=== PATIENT | female | born 1955 | race Caucasian/White ===

== ENCOUNTER 2017-03-21 18:57 | Emergency (ER) | payer BC, OTHER ==
[~2017-03-21] VITALS: Ht 154.9 cm; Wt 68.0 kg
[~2017-03-21 18:57] MED LIST: /PROG10CA; ACET65TA; ANTI25TA; BABY81CH; CALC600T10; FISHCAP; PREM0.626; THERGRAN; VITAMIN D
[2017-03-21] MEDS ORDERED: ASPIRIN 81 MG CHEW TABLET PO ONE (19:30)
[2017-03-21] MEDS ORDERED: GI COCKTAIL 50ML BTL(HYOSCYAMINE/MAALOX/LIDOCAINE VISCOUS)(1:3:1) PO ONE (19:30)
[2017-03-21 19:56] LABS: BASO % 0.3 % (0.0-1.0); EOS # 0.2 K/mm3 (0.0-0.50); EOS % 2.4 % (0.0-3.0); LARGE UNSTAINED CELL # 0.1 K/mm3 (0.0-0.4); LARGE UNSTAINED CELL % 1.4 % (0.0-4.0); LYMPH # 1.8 K/mm3 (1.5-4.5); LYMPH % 25.3 % (24.0-44.0); MEAN CORPUSCULAR HEMOGLOBIN 32.6 pg (27.0-33.0); MEAN CORPUSCULAR HGB CONC 34.1 g/dl (32.0-36.5); MEAN CORPUSCULAR VOLUME 95.7 fl (80.0-96.0); MONO # 0.2 K/mm3 (0.0-0.8); MONO % 3.4 % (0.0-5.0); NEUTROPHILS # 4.5 K/mm3 (1.8-7.7); NEUTROPHILS % 67.2 % (36.0-66.0); PLATELET COUNT, AUTOMATED 238 k/mm3 (150-450); WHITE BLOOD COUNT 6.8 K/mm3 (4.0-10.0)
[2017-03-21 20:01] LABS: INR 0.97
[2017-03-21 20:23] LABS: ALBUMIN 3.9 GM/DL (3.2-5.2); ALBUMIN/GLOBULIN RATIO 1.08 (1.00-1.93); ALKALINE PHOSPHATASE 82 U/L (45-117); ALT/SGPT 42 U/L (12-78); ANION GAP 4 MEQ/L (8-16); AST/SGOT 26 U/L (15-37); BILIRUBIN,DIRECT 0.1 MG/DL (0.0-0.2); BILIRUBIN,TOTAL 0.6 MG/DL (0.2-1.0); BLOOD UREA NITROGEN 11 MG/DL (7-18); CALCIUM LEVEL 8.8 MG/DL (8.5-10.1); CARBON DIOXIDE LEVEL 30 MEQ/L (21-32); CHLORIDE LEVEL 104 MEQ/L (98-107); CREATININE FOR GFR 0.77 MG/DL (0.55-1.02); GLOMERULAR FILTRATION RATE > 60.0 (>51); GLUCOSE, FASTING 123 MG/DL (70-105); POTASSIUM SERUM 3.4 MEQ/L (3.5-5.1); SODIUM LEVEL 138 MEQ/L (136-145); TOTAL PROTEIN 7.5 GM/DL (6.4-8.2)
[2017-03-21 20:41] VITALS: BP 127/72
--- NOTE | 2017-03-22 08:05 | REP ---
PA and lateral chest: Comparison is 05/06/2010. The lung strange are clear. The cardiac size is normal The checo, mediastinum, and bony thorax are unremarkable. Impression: Negative PA and lateral chest. There is no interval change. Signed by Ruddy Castro MD 03/22/2017 07:56 A
--- NOTE | 2017-03-22 08:53 | ECGEPIP ---
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
== END 2017-03-21 21:05 | disposition home or self-care (01) ==
LOC: M ED 19:20
DX: R07.9 Chest pain, unspecified (principal); Z91.030 Bee allergy status; Z87.891 Personal history of nicotine dependence

== ENCOUNTER → 2017-05-24 | Outpatient (CLI) | payer BC ==
[2017-05-24 19:02] LABS: FREE T4 0.94 NG/DL (0.76-1.46)
== END ==
LOC: M WUC 11:03
PROVIDERS: ATTEND Family Medicine
DX: E03.8 Other specified hypothyroidism (principal)

== ENCOUNTER → 2017-10-30 | Outpatient (REF) | payer BC | LOC: M SFHCLERA 10:13 | PROVIDERS: ATTEND Dermatology | DX: L30.8 Other specified dermatitis (principal) ==

== ENCOUNTER → 2017-10-31 | Outpatient (CLI) | payer BC ==
--- NOTE | 2017-10-31 10:36 | REPMRS ---
Patient History The patient states she had a clinical breast exam in Patient is postmenopausal and is nulliparous. Family history of breast cancer in maternal aunt at age 50 or over. Took hormonal contraceptives for 10 years. Taking estrogen for 10 years. Took progesterone for 5 years. Digital Woman Screen Mammo: October 31, 2017 - Exam #: [id number] Bilateral CC and MLO view(s) were taken. Technologist: Sonja Arango, Technologist Prior study comparison: September 19, 2016, digital woman screen mammo performed at [facility]. July 05, 2015, digital woman screen mammo performed at [facility]. July 01, 2014, digital woman screen mammo performed at [facility]. FINDINGS: The breast tissue is heterogeneously dense. This may lower the sensitivity of mammography. There is a moderate amount of heterogeneously dense fibroglandular tissue which is fairly symmetric. There is no interval development of dominant mass, architectural distortion, or clustered microcalcification typical of malignancy. There has been no change in the appearance of the mammogram from the prior studies. ASSESSMENT: BI-RADS/ACR category 1 mammogram. Negative. Recommendation Routine screening mammogram of both breasts in 1 year (for women over age 40). This mammogram was interpreted with the aid of an FDA-approved computer-aided dectection system. Electronically Signed By: Gregg Gonzalez MD 10/31/17 1036
== END ==
LOC: M WHC 09:22
PROVIDERS: ATTEND Nurse Practitioner Women's Health
DX: Z12.31 Encounter for screening mammogram for malignant neoplasm of breast (principal)

== ENCOUNTER → 2017-10-31 | Outpatient (REF) | payer BC | LOC: M SFHCWAGY 09:58 | PROVIDERS: ATTEND Nurse Practitioner Women's Health | DX: Z12.4 Encounter for screening for malignant neoplasm of cervix (principal) ==

== ENCOUNTER 2018-02-23 06:45 | Day surgery (SDC) | payer BC ==
[2018-02-23] MEDS: NS 1,000 ML IV (07:00)
[2018-02-23] MEDS ORDERED: PROPOFOL 200 MG/20 ML VIAL As Ordered ×2 (07:45→07:47)
[2018-02-23] MEDS ORDERED: LIDOCAINE 2% INJ 100 MG/5 ML SDV (FOR ANES.) As Ordered (07:45)
== END 2018-02-23 08:30 | disposition home or self-care (01) ==
LOC: M OPP 06:45
DX: Z12.11 Encounter for screening for malignant neoplasm of colon (principal); K64.0 First degree hemorrhoids; K57.30 Diverticulosis of large intestine without perforation or abscess without bleeding; R07.89 Other chest pain; K21.9 Gastro-esophageal reflux disease without esophagitis; R12 Heartburn; M19.90 Unspecified osteoarthritis, unspecified site; Z85.828 Personal history of other malignant neoplasm of skin; Z78.0 Asymptomatic menopausal state; Z96.641 Presence of right artificial hip joint; Z91.030 Bee allergy status; Z91.048 Other nonmedicinal substance allergy status; Z79.899 Other long term (current) drug therapy; Z87.891 Personal history of nicotine dependence
CPT/HCPCS: G0121

== ENCOUNTER → 2018-06-02 | Outpatient (CLI) | payer BC ==
[2018-06-02 12:48] LABS: ALBUMIN 3.5 GM/DL (3.2-5.2); ALBUMIN/GLOBULIN RATIO 1.06 (1.00-1.93); ALKALINE PHOSPHATASE 82 U/L (45-117); ALT/SGPT 39 U/L (12-78); ANION GAP 8 MEQ/L (8-16); AST/SGOT 21 U/L (7-37); BILIRUBIN,TOTAL 0.6 MG/DL (0.2-1.0); BLOOD UREA NITROGEN 13 MG/DL (7-18); CALCIUM LEVEL 8.9 MG/DL (8.8-10.2); CARBON DIOXIDE LEVEL 27 MEQ/L (21-32); CHLORIDE LEVEL 108 MEQ/L (98-107); CHOLESTEROL LEVEL 189 MG/DL (<200); CREATININE FOR GFR 0.66 MG/DL (0.55-1.30); FREE T4 0.87 NG/DL (0.76-1.46); GLOMERULAR FILTRATION RATE > 60.0 (>45); GLUCOSE, FASTING 92 MG/DL (70-100); HDL CHOLESTEROL 70 MG/DL (>40); NON-HDL-C 119 MG/DL; POTASSIUM SERUM 4.2 MEQ/L (3.5-5.1); SODIUM LEVEL 143 MEQ/L (136-145); TOTAL PROTEIN 6.8 GM/DL (6.4-8.2); TRIGLYCERIDES LEVEL 90 MG/DL (<150)
== END ==
LOC: M WUC 08:36
DX: Z00.01 Encounter for general adult medical examination with abnormal findings (principal); E03.9 Hypothyroidism, unspecified
CPT/HCPCS: 84443

== ENCOUNTER → 2018-12-24 | Outpatient (CLI) | payer BC ==
[~2018-12-24] MED LIST changes: +ACYC400T PO; +ESTR1CRE VA; +METR0.7534 TOP; +TRET0.0540 EX; +VITA100067 PO
--- NOTE | 2018-12-24 15:26 | REPMRS ---
Patient History The patient states she had a clinical breast exam in 12/2018. Patient is postmenopausal, has history of other cancer at age 60, and is nulliparous. Family history of breast cancer at age 50 or over in maternal aunt. Took hormonal contraceptives for 10 years. Taking estrogen for 10 years. Took progesterone for 5 years. Digital Woman Screen Mammo: December 24, 2018 - Exam #: [id number] Bilateral CC and MLO view(s) were taken. Technologist: Susana Og Technologist Prior study comparison: October 31, 2017, digital woman screen mammo performed at [facility]. September 19, 2016, digital woman screen mammo performed at [facility]. July 05, 2015, digital woman screen mammo performed at [facility]. FINDINGS: The breast tissue is heterogeneously dense. This may lower the sensitivity of mammography. There is a moderate amount of heterogeneously dense fibroglandular tissue which is fairly symmetric. There is no interval development of dominant mass, architectural distortion, or clustered microcalcification typical of malignancy. There has been no change in the appearance of the mammogram from the prior studies. 3-D tomosynthesis shows no additional findings. Assessment: BI-RADS/ACR category 1 mammogram. Negative Mammogram. Recommendation Routine screening mammogram of both breasts in 1 year (for women over age 40). This patient's Lifetime Breast Cancer RIsk is estimated at 10.3 %. This mammogram was interpreted with the aid of an FDA-approved computer-aided dectection system. Electronically Signed By: Gregg Gonzalez MD 12/24/18 [id number]
== END ==
LOC: M WHC 13:37
PROVIDERS: ATTEND Nurse Practitioner Women's Health
DX: Z12.31 Encounter for screening mammogram for malignant neoplasm of breast (principal); Z78.0 Asymptomatic menopausal state; Z92.0 Personal history of contraception; Z92.23 Personal history of estrogen therapy; Z85.9 Personal history of malignant neoplasm, unspecified

== ENCOUNTER → 2018-12-24 | Outpatient (REF) | payer BC ==
[2018-12-26 15:32] LABS: HPV HYBRID CAPTURE II Negative (Negative)
== END ==
LOC: M SFHCWAGY 14:02
PROVIDERS: ATTEND Nurse Practitioner Women's Health
DX: Z12.4 Encounter for screening for malignant neoplasm of cervix (principal); R87.610 Atypical squamous cells of undetermined significance on cytologic smear of cervix (ASC-US); N95.2 Postmenopausal atrophic vaginitis
CPT/HCPCS: 87624; G0123

== ENCOUNTER → 2019-01-06 | Outpatient (REF) | payer BC | LOC: M SFHCPLAZ 17:19 | PROVIDERS: ATTEND Dermatology | DX: D23.21 Other benign neoplasm of skin of right ear and external auricular canal (principal) ==

== ENCOUNTER → 2019-01-14 | Outpatient (CLI) | payer BC ==
[~2019-01-14] MED LIST changes: +ISOVUE-370 76% 100ML VIAL (Q9967) As Ordered ONE
--- NOTE | 2019-01-19 16:08 | REP ---
CT CHEST WITHOUT IV CONTRAST: 01/14/2019. Comparison: CT without contrast 01/12/2018, outside exam. Clinical history: Follow-up lung nodule. Technique: Bolus of 75 ml Isovue 370 scanning through the chest with coronal and sagittal reconstructions provided. Findings: There is a 2 mm stable nodule lateral basal segment left lower lobe. There is also a stable 2 mm nodule in the inferior lingular segment along the major fissure on image 71. Some minor dependent atelectatic change posteriorly in the mid lung zone on the right. There are tree in bud nodular densities in the right upper lobe, which were not present on the previous study. The largest of these is 5 mm seen on image 36. Some minor apical pleural scarring noted bilaterally. There is no pleural based mass, pleural thickening, calcified pleural plaque thorax. Heart is not enlarged. There is a small hiatal hernia. Aorta is without aneurysm or dissection. The main, right and left pulmonary arteries are without focal filling defect. No pathologic sized mediastinal, hilar, axillary or supraclavicular mass. Bone windows show the sternum, manubrium, medial clavicles, scapulae and ribs intact. There are degenerative changes at the shoulders right greater than left. Spine shows no compression fracture or destructive lesion. Upper abdomen shows that portion of liver intact. The spleen is unremarkable. Only a portion of gallbladder and pancreas included but they were unremarkable. Adrenal glands normal. Impression: 1. Small left lung nodules on the previous study are stable. 2. There are new tree in bud nodular densities in the posterior segment right upper lobe. Although this usually represents bronchiectasis with endobronchial debris or infection, there are less common causes should be considered if the clinical setting warrants. Bronchiolitis such as obliterative bronchiolitis, mucus plugging and connective tissue disease along with other rare manifestations. Please correlate clinically. Electronically Signed by Eusebio Short MD 01/19/2019 06:01 P
== END ==
LOC: M RAD 10:32
PROVIDERS: ATTEND Family Medicine
DX: R91.8 Other nonspecific abnormal finding of lung field (principal)
CPT/HCPCS: 71260; Q9967

== ENCOUNTER → 2019-12-24 | Outpatient (CLI) | payer BC ==
[~2019-12-24] MED LIST changes: -/PROG10CA; -ISOVUE-370 76% 100ML VIAL (Q9967) As Ordered ONE; +PROM1CAP
--- NOTE | 2019-12-24 15:17 | REP ---
BILATERAL SCREENING DIGITAL MAMMOGRAM WITH 3D TOMOSYNTHESIS: There are no palpable abnormalities or other breast complaints. The the patient states she had a clinical breast examination December,. The Tyrer Cuzick Score is: 9.9% . Comparison is 10/31/2017 and 06/28/2013. The breasts are heterogeneously dense, which could obscure small masses. There is no dominant mass, micro calcific cluster or architectural distortion that would indicate malignancy. There are no additional findings on 3D tomosynthesiss. There is no change from the prior study. Impression: BIRADS/ACR category 1 mammogram. Negative. Recommendation: Routine annual screening mammography. Because of the increased breast density, annual adjunctive breast MRI in addition to screening mammography is recommended. These can be performed at alternating six month intervals. This mammogram was interpreted with the aid of a FDA approved computer-aided detection system. A. Negative mammogram reports should not delay biopsy if a dominant or clinically suspicious mass is present. B. Not all breast cancers are identified by mammography or tomosynthesis. C. Adenosis and dense breasts may obscure an underlying neoplasm. Patient letter M1 dense breasts. Electronically Signed by Ruddy Castro MD 12/24/2019 11:54 A
== END ==
LOC: M WHC 10:21
PROVIDERS: ATTEND Nurse Practitioner Women's Health
DX: Z12.31 Encounter for screening mammogram for malignant neoplasm of breast (principal)
CPT/HCPCS: 77063; 77067; G0123

== ENCOUNTER → 2019-12-24 | Outpatient (CLI) | payer BC ==
[2019-12-24 12:52] LABS: HEMATOCRIT 40.9 % (36.0-47.0); MEAN CORPUSCULAR HEMOGLOBIN 32.8 pg (27.0-33.0); MEAN CORPUSCULAR HGB CONC 34.2 g/dl (32.0-36.5); MEAN CORPUSCULAR VOLUME 95.8 fl (80.0-96.0); PLATELET COUNT, AUTOMATED 208 10^3/uL (150-450); RED BLOOD COUNT 4.27 10^6/uL (4.00-5.40)
[2019-12-24 13:03] LABS: ALBUMIN 3.9 GM/DL (3.2-5.2); ALT/SGPT 34 U/L (12-78); BILIRUBIN,TOTAL 0.6 MG/DL (0.2-1.0); BLOOD UREA NITROGEN 12 MG/DL (7-18); CALCIUM LEVEL 9.3 MG/DL (8.8-10.2); CARBON DIOXIDE LEVEL 30 MEQ/L (21-32); CHLORIDE LEVEL 107 MEQ/L (98-107); CHOLESTEROL LEVEL 183 MG/DL (<200); CHOLESTEROL RISK RATIO 2.127 (<5); CREATININE FOR GFR 0.69 MG/DL (0.55-1.30); FREE T4 1.06 NG/DL (0.76-1.46); GLOMERULAR FILTRATION RATE > 60.0 (>45); GLUCOSE, FASTING 89 MG/DL (70-100); HDL CHOLESTEROL 86 MG/DL (>40); LDL CHOLESTEROL 87 MG/DL (<100); NON-HDL-C 97 MG/DL; SODIUM LEVEL 140 MEQ/L (136-145); TOTAL PROTEIN 7.2 GM/DL (6.4-8.2); TRIGLYCERIDES LEVEL 48 MG/DL (<150)
== END ==
LOC: M WUC 08:54
PROVIDERS: ATTEND Family Medicine
DX: E03.9 Hypothyroidism, unspecified (principal); R91.1 Solitary pulmonary nodule

== ENCOUNTER → 2019-12-28 | Outpatient (CLI) | payer BC ==
[~2019-12-28] MED LIST changes: +ISOVUE-370 76% 100ML VIAL (Q9967) As Ordered ONE
--- NOTE | 2019-12-30 02:09 | REP ---
Clinical: Abnormal pulmonary findings. Technique: Axial contrast enhanced images from the thoracic inlet to the upper abdomen with coronal and sagittal re-formations using 75 ml Isovue 370 intravenous contrast material. Comparison: Findings: Previous focal area of tree in bud infiltrate in the right upper lobe has resolved. Previously identified small scattered nodules measuring 2-3 mm as identified on 01/12/2018 remains stable and consistent with small chronic granulomatous changes. No acute significant consolidation, pulmonary nodule or mass lesion. No pleural effusion. No pneumothorax. Tracheobronchial tree is patent. No adenopathy. The mediastinum demonstrates normal thoracic aorta and heart/pericardium. No aortic aneurysm or dissection. No cardiomegaly or pericardial effusion. Surrounding musculoskeletal structures are intact. Limited upper abdomen unremarkable. Impression: 1. Previously identified infiltrate in the right upper lobe has resolved. 2. Few scattered small nodules up to 3 mm remains stable through 01/12/2018 and likely represent benign chronic granulomatous changes. 3. No acute mediastinal or pleuroparenchymal process appreciated. Electronically Signed by Rudy Murdock MD 12/30/2019 02:01 A
== END ==
LOC: M RAD 17:25
PROVIDERS: ATTEND Family Medicine
DX: R91.8 Other nonspecific abnormal finding of lung field (principal)
CPT/HCPCS: 71260; Q9967

== ENCOUNTER → 2020-04-30 | Outpatient (CLI) | payer BC ==
[~2020-04-30] MED LIST changes: -ISOVUE-370 76% 100ML VIAL (Q9967) As Ordered ONE
--- NOTE | 2020-04-30 14:44 | REP ---
LEFT ANKLE, FOUR VIEWS: Four views of left ankle performed. Multiple calcific densities are seen adjacent to the medial malleolus. This could represent acute or chronic avulsion fractures, with possible ligamentous calcifications. There is no other evidence of fracture or dislocation. The ankle mortise is anatomic. There is lucency in the talar dome in a subcortical location. I cannot exclude an osteochondral lesion. There is mild inferior calcaneal spurring. Electronically Signed by Ruddy Dinero MD 04/30/2020 03:24 P
== END ==
LOC: M WUC 12:25
PROVIDERS: ATTEND Nurse Practitioner Family

== ENCOUNTER → 2020-06-08 | Outpatient (REF) | payer BC ==
[2020-06-08 13:02] LABS: HEMATOCRIT 41.7 % (36.0-47.0); HEMOGLOBIN 13.9 g/dl (12.0-15.5); MEAN CORPUSCULAR HEMOGLOBIN 32.3 pg (27.0-33.0); MEAN CORPUSCULAR HGB CONC 33.3 g/dl (32.0-36.5); MEAN CORPUSCULAR VOLUME 96.8 fl (80.0-96.0); PLATELET COUNT, AUTOMATED 218 10^3/uL (150-450); RED BLOOD COUNT 4.31 10^6/uL (4.00-5.40); WHITE BLOOD COUNT 5.7 10^3/uL (4.0-10.0)
[2020-06-08 13:57] LABS: ALBUMIN 3.8 GM/DL (3.2-5.2); ALT/SGPT 31 U/L (12-78); BILIRUBIN,TOTAL 0.7 MG/DL (0.2-1.0); BLOOD UREA NITROGEN 16 MG/DL (7-18); CALCIUM LEVEL 9.2 MG/DL (8.8-10.2); CARBON DIOXIDE LEVEL 27 MEQ/L (21-32); CHLORIDE LEVEL 106 MEQ/L (98-107); CHOLESTEROL LEVEL 212 MG/DL (<200); CHOLESTEROL RISK RATIO 2.494 (<5); CREATININE FOR GFR 0.73 MG/DL (0.55-1.30); FREE T4 0.92 NG/DL (0.76-1.46); GLOMERULAR FILTRATION RATE > 60.0 (>45); GLUCOSE, FASTING 88 MG/DL (70-100); HDL CHOLESTEROL 85 MG/DL (>40); LDL CHOLESTEROL 115 MG/DL (<100); NON-HDL-C 127 MG/DL; POTASSIUM SERUM 4.5 MEQ/L (3.5-5.1); SODIUM LEVEL 140 MEQ/L (136-145); TOTAL PROTEIN 7.5 GM/DL (6.4-8.2); TRIGLYCERIDES LEVEL 59 MG/DL (<150)
== END ==
LOC: M PLALAB 09:10
PROVIDERS: ATTEND Family Medicine
DX: R91.1 Solitary pulmonary nodule (principal); E03.9 Hypothyroidism, unspecified

== ENCOUNTER → 2020-10-24 | Outpatient (CLI) | payer BC | LOC: M LABSMTC 13:57 | PROVIDERS: ATTEND Family Medicine | DX: Z20.828 Contact with and (suspected) exposure to other viral communicable diseases (principal) ==

== ENCOUNTER → 2021-01-09 | Outpatient (REF) | payer BC | LOC: M SFHCWAGY 13:47 | PROVIDERS: ATTEND Nurse Practitioner Women's Health | DX: Z12.4 Encounter for screening for malignant neoplasm of cervix (principal) ==

== ENCOUNTER → 2021-01-09 | Outpatient (CLI) | payer BC ==
--- NOTE | 2021-01-09 12:53 | REPMRS ---
Patient History The patient states she had a clinical breast exam in January 2021. Patient is postmenopausal, has history of other cancer at age 60, and is nulliparous. Family history of breast cancer at age 50 or over in maternal aunt. Took hormonal contraceptives for 10 years. Took estrogen for 11 years 2 months. Took progesterone for 5 years. Digital Woman Screen Mammo: January 09, 2021 - Exam #: [id number] Bilateral CC and MLO view(s) were taken. Technologist: Nehal Lenz, Technologist Prior study comparison: December 24, 2019, bilateral digital woman screen mammo performed at [facility]. December 24, 2018, bilateral digital woman screen mammo performed at [facility]. October 31, 2017, digital woman screen mammo performed at [facility]. FINDINGS: The breast tissue is heterogeneously dense. This may lower the sensitivity of mammography. The Volpara volumetric breast density category is: C. There is a moderate amount of heterogeneously dense fibroglandular tissue which is fairly symmetric. There is no interval development of dominant mass, architectural distortion, or grouped microcalcification typical of malignancy. There has been no change in the appearance of the mammogram from the prior studies. 3-D tomosynthesis shows no additional findings. Assessment: BI-RADS/ACR category 1 mammogram. Negative Mammogram. Recommendation Routine screening mammogram of both breasts in 1 year (for women over age 40). This patient's [facility] Lifetime Breast Cancer RIsk is estimated at 9.6 %. This mammogram was interpreted with the aid of an FDA-approved computer-aided dectection system. Electronically Signed By: Gregg Gonzalez MD 01/09/21 [id number]
== END ==
LOC: M WHC 10:58
PROVIDERS: ATTEND Nurse Practitioner Women's Health
DX: Z12.31 Encounter for screening mammogram for malignant neoplasm of breast (principal); Z78.0 Asymptomatic menopausal state; Z80.3 Family history of malignant neoplasm of breast

== ENCOUNTER → 2021-06-06 | Outpatient (CLI) | payer BC ==
[~2021-06-06] MED LIST changes: +ACYC1TAB PO; -ACYC400T PO
[2021-06-06 10:45] LABS: ALBUMIN 3.9 GM/DL (3.2-5.2); ALT/SGPT 44 U/L (12-78); BLOOD UREA NITROGEN 15 MG/DL (7-18); CALCIUM LEVEL 9.1 MG/DL (8.8-10.2); CARBON DIOXIDE LEVEL 28 MEQ/L (21-32); CHLORIDE LEVEL 104 MEQ/L (98-107); CHOLESTEROL LEVEL 211 MG/DL (<200); CHOLESTEROL RISK RATIO 2.153 (<5); CREATININE FOR GFR 0.69 MG/DL (0.55-1.30); FREE T4 0.94 NG/DL (0.76-1.46); GLOMERULAR FILTRATION RATE > 60.0 (>45); GLUCOSE, FASTING 90 MG/DL (70-100); HDL CHOLESTEROL 98 MG/DL (>40); LDL CHOLESTEROL 100 MG/DL (<100); NON-HDL-C 113 MG/DL; SODIUM LEVEL 138 MEQ/L (136-145); TOTAL PROTEIN 7.3 GM/DL (6.4-8.2); TRIGLYCERIDES LEVEL 63 MG/DL (<150)
== END ==
LOC: M PLALAB 08:03
PROVIDERS: ATTEND Family Medicine
DX: E78.5 Hyperlipidemia, unspecified (principal); E03.9 Hypothyroidism, unspecified

== ENCOUNTER → 2021-09-20 | Outpatient (CLI) | payer BC ==
[2021-09-20 15:12] LABS: BASO # 0.1 10^3/uL (0.0-0.2); BASO % 0.6 % (0.0-1.0); EOS % 0.2 % (0.0-3.0); HEMOGLOBIN 13.7 g/dl (12.0-15.5); LYMPH # 2.4 10^3/uL (1.5-5.0); MEAN CORPUSCULAR HEMOGLOBIN 32.6 pg (27.0-33.0); MEAN CORPUSCULAR HGB CONC 34.3 g/dl (32.0-36.5); MEAN CORPUSCULAR VOLUME 95.2 fl (80.0-96.0); MONO # 0.5 10^3/uL (0.0-0.8); MONO % 5.8 % (2.0-8.0); NEUTROPHILS # 5.6 10^3/uL (1.5-8.5); NEUTROPHILS % 65.2 % (36.0-66.0); PLATELET COUNT, AUTOMATED 238 10^3/uL (150-450); WHITE BLOOD COUNT 8.6 10^3/uL (4.0-10.0)
[2021-09-20 15:40] LABS: C REACTIVE PROTEIN QUANTITATIV < 0.30 MG/DL (0.00-0.30); RHEUMATOID FACTOR QUANT < 10.0 IU/ML (<15.0); URIC ACID 4.5 MG/DL (2.6-6.0)
[2021-09-20 16:02] LABS: ERYTHROCYTE SEDIMENTATION RATE 8 mm/hr (0-30)
[2021-09-22 20:11] LABS: ANTI DOUBLE STRAND-DNA AB <1 IU/mL (0-9); ANTINUCLEAR ANTIBODIES DIRECT Positive (Negative); Lyme Disease IgG/IgM Antibodie <0.91 ISR (0.00-0.90); Lyme Disease IgM Ab Quantitati <0.80 index (0.00-0.79); SJOGREN'S ANTI SS-A <0.2 AI (0.0-0.9); SJOGREN'S ANTI SS-B <0.2 AI (0.0-0.9); SMITH ANTIBODIES <0.2 AI (0.0-0.9)
== END ==
LOC: M PLALAB 14:04
PROVIDERS: ATTEND Physician Assistant Surgical
DX: M16.12 Unilateral primary osteoarthritis, left hip (principal)

== ENCOUNTER → 2021-11-16 | Outpatient (CLI) | payer BC ==
[~2021-11-16] MED LIST changes: +ISOVUE-300 61% 50ML VIAL As Ordered ONE; +LIDOCAINE 1% MDV 20ML VIAL As Ordered ONE; +methylPREDNISolone SUSP 40MG/ML 1ML VIAL (DEPO MEDROL) As Ordered ONE
== END ==
LOC: M RADPRO 11:03
PROVIDERS: ATTEND Physician Assistant Surgical
DX: M16.12 Unilateral primary osteoarthritis, left hip (principal)
CPT/HCPCS: 20610; 77002; J1030; Q9967

== ENCOUNTER → 2022-01-14 | Outpatient (CLI) | payer BC ==
[~2022-01-14] MED LIST changes: -ISOVUE-300 61% 50ML VIAL As Ordered ONE; -LIDOCAINE 1% MDV 20ML VIAL As Ordered ONE; -methylPREDNISolone SUSP 40MG/ML 1ML VIAL (DEPO MEDROL) As Ordered ONE
[2022-01-14 18:08] LABS: BLOOD UREA NITROGEN 13 MG/DL (7-18); CALCIUM LEVEL 9.5 MG/DL (8.8-10.2); CARBON DIOXIDE LEVEL 28 MEQ/L (21-32); CHLORIDE LEVEL 106 MEQ/L (98-107); GLOMERULAR FILTRATION RATE > 60.0 (>45); GLUCOSE, FASTING 89 MG/DL (70-100); PHOSPHORUS LEVEL 3.7 MG/DL (2.5-4.9); POTASSIUM SERUM 4.4 MEQ/L (3.5-5.1); SODIUM LEVEL 141 MEQ/L (136-145)
[2022-01-14 18:09] LABS: ALBUMIN 3.9 GM/DL (3.2-5.2); ALT/SGPT 37 U/L (12-78); BILIRUBIN,TOTAL 0.4 MG/DL (0.2-1.0); CHOLESTEROL LEVEL 183 MG/DL (< 200); CPK CREATINE PHOSPHOKINASE 115 U/L (26-192); LDH LACTATE DEHYDROGENASE 177 U/L (84-246); TOTAL PROTEIN 7.3 GM/DL (6.4-8.2); TRIGLYCERIDES LEVEL 74 MG/DL (<150)
== END ==
LOC: M PLALAB 13:02
PROVIDERS: ATTEND Physician Assistant Surgical
DX: R76.8 Other specified abnormal immunological findings in serum (principal)

== ENCOUNTER → 2022-01-21 | Outpatient (REF) | payer BC | LOC: M SFHCDERM 14:18 | PROVIDERS: ATTEND Nurse Practitioner Family | DX: L82.0 Inflamed seborrheic keratosis (principal) ==

== ENCOUNTER → 2022-02-06 | Outpatient (CLI) | payer BC | LOC: M WHC 13:19 | PROVIDERS: ATTEND Advanced Practice Midwife | DX: Z12.31 Encounter for screening mammogram for malignant neoplasm of breast (principal) ==

== ENCOUNTER → 2022-02-06 | Outpatient (REF) | payer BC | LOC: M PLALAB 14:17 | PROVIDERS: ATTEND Advanced Practice Midwife | DX: Z12.4 Encounter for screening for malignant neoplasm of cervix (principal) | CPT/HCPCS: 87624; G0123 ==

== ENCOUNTER → 2022-03-28 | Outpatient (REF) | payer BC ==
[2022-03-28 13:10] LABS: HEMATOCRIT 40.1 % (36.0-47.0); HEMOGLOBIN 13.7 g/dl (12.0-15.5); MEAN CORPUSCULAR HEMOGLOBIN 32.9 pg (27.0-33.0); MEAN CORPUSCULAR HGB CONC 34.2 g/dl (32.0-36.5); MEAN CORPUSCULAR VOLUME 96.2 fl (80.0-96.0); PLATELET COUNT, AUTOMATED 266 10^3/uL (150-450); RED BLOOD COUNT 4.17 10^6/uL (4.00-5.40); WHITE BLOOD COUNT 7.5 10^3/uL (4.0-10.0)
[2022-03-28 13:18] LABS: APPEARANCE, URINE CLOUDY (CLEAR); BACTERIA, URINE AUTO 2+ (NEGATIVE); BILIRUBIN, URINE AUTO NEGATIVE (NEGATIVE); BLOOD, URINE BLOOD 1+ (NEGATIVE); COLOR, URINE YELLOW (YELLOW); GLUCOSE, URINE (UA) AUTO NEGATIVE (NEGATIVE); KETONE, URINE AUTO NEGATIVE (NEGATIVE); LEUKOCYTE ESTERASE, URINE AUTO 3+ (NEGATIVE); MUCUS, URINE SMALL (NEGATIVE); NITRITE, URINE AUTO NEGATIVE (NEGATIVE); PROTEIN, URINE AUTO NEGATIVE (NEGATIVE); RBC, URINE AUTO 13 /HPF (0-3); RENAL EPITHELIAL CELLS 2 /HPF; SPECIFIC GRAVITY URINE AUTO 1.013 (1.002-1.035); SQUAMOUS EPITHELIAL CELL UR AU 73 /HPF (0-6); TRANSITIONAL EPITHELIAL AUTO 1 /HPF; UROBILINOGEN, URINE AUTO 0.2 mg/dL (0.0-2.0); WBC, URINE AUTO 91 /HPF (0-3)
[2022-03-28 13:21] LABS: INR 0.96; PARTIAL THROMBOPLASTIN TIME 28.7 SECONDS (25.9-37.0); PROTHROMBIN TIME 13.2 SECONDS (12.7-14.5)
[2022-03-28 13:38] LABS: ALBUMIN 3.9 GM/DL (3.2-5.2); ALT/SGPT 42 U/L (12-78); BILIRUBIN,TOTAL 0.5 MG/DL (0.2-1.0); BLOOD UREA NITROGEN 17 MG/DL (7-18); CALCIUM LEVEL 9.9 MG/DL (8.8-10.2); CARBON DIOXIDE LEVEL 26 MEQ/L (21-32); CHLORIDE LEVEL 105 MEQ/L (98-107); CREATININE FOR GFR 0.58 MG/DL (0.55-1.30); GLOMERULAR FILTRATION RATE > 60.0 (>45); GLUCOSE, FASTING 105 MG/DL (70-100); POTASSIUM SERUM 4.2 MEQ/L (3.5-5.1); SODIUM LEVEL 137 MEQ/L (136-145); TOTAL PROTEIN 7.1 GM/DL (6.4-8.2)
== END ==
LOC: M SFHCADAM 10:30
PROVIDERS: ATTEND Family Medicine
DX: Z01.818 Encounter for other preprocedural examination (principal); M16.12 Unilateral primary osteoarthritis, left hip; E78.5 Hyperlipidemia, unspecified

== ENCOUNTER → 2022-08-26 | Outpatient (CLI) | payer MEDICARE, BC ==
[2022-08-26 10:46] LABS: HEMATOCRIT 42.6 % (36.0-47.0); HEMOGLOBIN 14.4 g/dl (12.0-15.5); MEAN CORPUSCULAR HEMOGLOBIN 32.6 pg (27.0-33.0); MEAN CORPUSCULAR HGB CONC 33.8 g/dl (32.0-36.5); MEAN CORPUSCULAR VOLUME 96.4 fl (80.0-96.0); PLATELET COUNT, AUTOMATED 238 10^3/uL (150-450); RED BLOOD COUNT 4.42 10^6/uL (4.00-5.40)
[2022-08-26 11:36] LABS: BLOOD UREA NITROGEN 17 MG/DL (7-18); CREATININE FOR GFR 0.68 MG/DL (0.55-1.30); GLUCOSE, FASTING 93 MG/DL (70-100)
[2022-08-26 11:37] LABS: ALBUMIN 3.6 GM/DL (3.2-5.2); ALT/SGPT 91 U/L (12-78); BILIRUBIN,TOTAL 0.5 MG/DL (0.2-1.0); CALCIUM LEVEL 9.2 MG/DL (8.8-10.2); CARBON DIOXIDE LEVEL 29 MEQ/L (21-32); CHLORIDE LEVEL 102 MEQ/L (98-107); CHOLESTEROL LEVEL 180 MG/DL (<200); CHOLESTEROL RISK RATIO 2.337 (<5); FREE T4 0.98 NG/DL (0.76-1.46); GLOMERULAR FILTRATION RATE > 60.0 (>45); HDL CHOLESTEROL 77 MG/DL (>40); LDL CHOLESTEROL 87 MG/DL (<100); NON-HDL-C 103 MG/DL; SODIUM LEVEL 136 MEQ/L (136-145); TOTAL PROTEIN 7.6 GM/DL (6.4-8.2); TRIGLYCERIDES LEVEL 81 MG/DL (<150)
== END ==
LOC: M PLALAB 08:07
PROVIDERS: ATTEND Family Medicine
DX: M75.01 Adhesive capsulitis of right shoulder (principal); E03.9 Hypothyroidism, unspecified; E78.5 Hyperlipidemia, unspecified

== ENCOUNTER → 2023-01-23 | Outpatient (REF) | payer MEDICARE, BC | LOC: M SFHCDERM 16:58 | PROVIDERS: ATTEND Nurse Practitioner Family | DX: D23.5 Other benign neoplasm of skin of trunk (principal) ==

== ENCOUNTER → 2023-02-17 | Outpatient (CLI) | payer MEDICARE, BC ==
[2023-02-17 15:41] LABS: ALBUMIN 3.8 G/DL (3.2-5.2); BILIRUBIN,DIRECT 0.2 MG/DL (<0.4); BILIRUBIN,TOTAL 0.6 MG/DL (0.3-1.2); TOTAL PROTEIN 6.8 G/DL (5.7-8.2)
== END ==
LOC: M PLALAB 13:21
PROVIDERS: ATTEND Family Medicine
DX: R74.8 Abnormal levels of other serum enzymes (principal)

== ENCOUNTER → 2023-02-27 | Outpatient (REF) | payer MEDICARE, BC | LOC: M SFHCADAM 16:39 | PROVIDERS: ATTEND Family Medicine | DX: E03.9 Hypothyroidism, unspecified (principal); E78.5 Hyperlipidemia, unspecified; M75.01 Adhesive capsulitis of right shoulder; M75.02 Adhesive capsulitis of left shoulder; Z13.1 Encounter for screening for diabetes mellitus ==

== ENCOUNTER → 2023-04-08 | Outpatient (CLI) | payer MEDICARE, BC | LOC: M SOG 07:57 | PROVIDERS: ATTEND Orthopaedic Surgery Hand Surgery | DX: M25.511 Pain in right shoulder (principal) ==

== ENCOUNTER → 2023-04-25 | Outpatient (CLI) | payer MEDICARE, BC | LOC: M WHC 13:19 | PROVIDERS: ATTEND Advanced Practice Midwife | DX: Z12.31 Encounter for screening mammogram for malignant neoplasm of breast (principal); Z78.0 Asymptomatic menopausal state; Z80.3 Family history of malignant neoplasm of breast; Z92.0 Personal history of contraception; Z85.89 Personal history of malignant neoplasm of other organs and systems ==

== ENCOUNTER → 2023-04-25 | Outpatient (CLI) | payer MEDICARE, BC | LOC: M WHC 14:30 | PROVIDERS: ATTEND Advanced Practice Midwife | DX: M85.88 Other specified disorders of bone density and structure, other site (principal); M85.832 Other specified disorders of bone density and structure, left forearm; Z13.820 Encounter for screening for osteoporosis ==

== ENCOUNTER → 2023-08-21 | Outpatient (CLI) | payer MEDICARE, BC ==
[2023-08-21 14:31] LABS: HEMATOCRIT 43.9 % (36.0-47.0); HEMOGLOBIN 14.6 g/dl (12.0-15.5); MEAN CORPUSCULAR HEMOGLOBIN 32.7 pg (27.0-33.0); MEAN CORPUSCULAR HGB CONC 33.3 g/dl (32.0-36.5); MEAN CORPUSCULAR VOLUME 98.4 fl (80.0-96.0); PLATELET COUNT, AUTOMATED 249 10^3/uL (150-450); RED BLOOD COUNT 4.46 10^6/uL (4.00-5.40); WHITE BLOOD COUNT 5.5 10^3/uL (4.0-10.0)
[2023-08-21 15:04] LABS: ALKALINE PHOSPHATASE 90 U/L (46-116); ALT/SGPT 28 U/L (7.0-40); AST/SGOT 29 U/L (<34); BILIRUBIN,TOTAL 0.9 MG/DL (0.3-1.2); BLOOD UREA NITROGEN 11 MG/DL (9-23); CALCIUM LEVEL 9.5 MG/DL (8.3-10.6); CARBON DIOXIDE LEVEL 31 MMOL/L (20-31); CHLORIDE LEVEL 104 MMOL/L (98-107); CHOLESTEROL LEVEL 192 MG/DL (<200); CHOLESTEROL RISK RATIO 2.29 (<5); CREATININE FOR GFR 0.64 MG/DL (0.55-1.30); GLOMERULAR FILTRATION RATE > 60.0 (>45); GLUCOSE, FASTING 92 MG/DL (74-106); HDL CHOLESTEROL 83.7 MG/DL (>40); LDL CHOLESTEROL 98.9 MG/DL (<100); NON-HDL-C 108.3 MG/DL; POTASSIUM SERUM 4.8 MMOL/L (3.5-5.1); SODIUM LEVEL 138 MMOL/L (136-145); TOTAL PROTEIN 7.2 G/DL (5.7-8.2); TRIGLYCERIDES LEVEL 47 MG/DL (<150)
[2023-08-21 15:05] LABS: THYROID STIMULATING HORMONE 3.076 uIU/ML (0.55-4.78)
[2023-08-21 15:44] LABS: HEMOGLOBIN A1c 4.6 % (4.0-6.0)
== END ==
LOC: M PLALAB 09:01
PROVIDERS: ATTEND Family Medicine
DX: E03.9 Hypothyroidism, unspecified (principal); E78.5 Hyperlipidemia, unspecified; M75.01 Adhesive capsulitis of right shoulder; M75.02 Adhesive capsulitis of left shoulder; Z13.1 Encounter for screening for diabetes mellitus

== ENCOUNTER → 2024-03-19 | Outpatient (CLI) | payer MEDICARE, BC | LOC: M ADAMS 13:32 | PROVIDERS: ATTEND Physician Assistant | DX: M25.562 Pain in left knee (principal) ==

== ENCOUNTER → 2024-04-28 | Outpatient (CLI) | payer MEDICARE, BC ==
[~2024-04-28] MED LIST changes: -METR0.7534 TOP; +METR60GE3 TOP
== END ==
LOC: M WHC 13:53
PROVIDERS: ATTEND Advanced Practice Midwife
DX: Z12.31 Encounter for screening mammogram for malignant neoplasm of breast (principal); R92.333 Mammographic heterogeneous density, bilateral breasts

== ENCOUNTER → 2024-10-07 | Outpatient (CLI) | payer MEDICARE, BC ==
[2024-10-07 13:30] LABS: HEMATOCRIT 40.8 % (36.0-47.0); MEAN CORPUSCULAR HEMOGLOBIN 33.1 pg (27.0-33.0); MEAN CORPUSCULAR HGB CONC 34.3 g/dl (32.0-36.5); MEAN CORPUSCULAR VOLUME 96.5 fl (80.0-96.0); PLATELET COUNT, AUTOMATED 241 10^3/uL (150-450); RED BLOOD COUNT 4.23 10^6/uL (4.00-5.40); WHITE BLOOD COUNT 5.1 10^3/uL (4.0-10.0)
[2024-10-07 13:35] LABS: ALBUMIN 3.5 G/DL (3.2-5.2); ALKALINE PHOSPHATASE 79 U/L (35-104); ALT/SGPT 27 U/L (7.0-40); AST/SGOT 21 U/L (<34); BILIRUBIN,TOTAL 0.6 MG/DL (0.3-1.2); BLOOD UREA NITROGEN 17 MG/DL (9-23); CALCIUM LEVEL 9.6 MG/DL (8.3-10.6); CARBON DIOXIDE LEVEL 28 MMOL/L (20-31); CHLORIDE LEVEL 106 MMOL/L (98-107); CHOLESTEROL LEVEL 192 MG/DL (<200); CHOLESTEROL RISK RATIO 2.61 (<5); CREATININE FOR GFR 0.57 MG/DL (0.55-1.30); GLOMERULAR FILTRATION RATE > 60.0 (>45); GLUCOSE, FASTING 98 MG/DL (74-106); HDL CHOLESTEROL 73.5 MG/DL (>40); LDL CHOLESTEROL 98.9 MG/DL (<100); NON-HDL-C 118.5 MG/DL; POTASSIUM SERUM 4.2 MMOL/L (3.5-5.1); SODIUM LEVEL 140 MMOL/L (136-145); TOTAL PROTEIN 7.3 G/DL (5.7-8.2); TRIGLYCERIDES LEVEL 98 MG/DL (<150)
[2024-10-07 13:37] LABS: FREE T4 1.02 NG/DL (0.89-1.76); THYROID STIMULATING HORMONE 1.955 uIU/ML (0.55-4.78)
[2024-10-07 13:43] LABS: HEMOGLOBIN A1c 5.1 % (4.0-6.0)
== END ==
LOC: M PLALAB 09:20
PROVIDERS: ATTEND Family Medicine
DX: E03.9 Hypothyroidism, unspecified (principal); E78.5 Hyperlipidemia, unspecified; Z91.030 Bee allergy status; Z13.1 Encounter for screening for diabetes mellitus

== ENCOUNTER → 2025-04-06 | Outpatient (CLI) | payer MEDICARE, BC ==
[~2025-04-06] MED LIST changes: +ACYC-438 PO; -ACYC1TAB PO
== END ==
LOC: M ADAMS 10:47
PROVIDERS: ATTEND Family Medicine
DX: S93.401A Sprain of unspecified ligament of right ankle, initial encounter (principal); X58.XXXA Exposure to other specified factors, initial encounter; Y92.9 Unspecified place or not applicable; Y93.9 Activity, unspecified; Y99.9 Unspecified external cause status

== ENCOUNTER → 2025-05-26 | Outpatient (CLI) | payer MEDICARE, BC | LOC: M WHC 12:52 | PROVIDERS: ATTEND Advanced Practice Midwife | DX: Z12.31 Encounter for screening mammogram for malignant neoplasm of breast (principal); Z13.820 Encounter for screening for osteoporosis; M85.89 Other specified disorders of bone density and structure, multiple sites; R92.333 Mammographic heterogeneous density, bilateral breasts ==

== ENCOUNTER → 2025-10-14 | Outpatient (CLI) | payer MEDICARE, BC ==
[2025-10-14 11:08] LABS: PLATELET COUNT, AUTOMATED 252 10^3/uL (150-450)
[2025-10-14 11:27] LABS: ESTIMATED AVERAGE GLUCOSE 97.0 MG/DL (60-110)
[2025-10-14 11:31] LABS: ALT/SGPT 27 U/L (7.0-40); AST/SGOT 28 U/L (<34); CALCIUM LEVEL 9.0 MG/DL (8.3-10.6); CARBON DIOXIDE LEVEL 27 MMOL/L (20-31); CHLORIDE LEVEL 105 MMOL/L (98-107); CHOLESTEROL LEVEL 195 MG/DL (<200); CHOLESTEROL RISK RATIO 2.45 (<5); CREATININE FOR GFR 0.65 MG/DL (0.55-1.30); GLOMERULAR FILTRATION RATE > 90.0 (>45); LDL CHOLESTEROL 101.5 MG/DL (<100); NON-HDL-C 115.5 MG/DL; POTASSIUM SERUM 4.3 MMOL/L (3.5-5.1); SODIUM LEVEL 141 MMOL/L (136-145); TRIGLYCERIDES LEVEL 70 MG/DL (<150)
[2025-10-14 11:36] LABS: FREE T4 1.05 NG/DL (0.89-1.76)
== END ==
LOC: M PLALAB 08:29
PROVIDERS: ATTEND Family Medicine
DX: E03.9 Hypothyroidism, unspecified (principal); R91.1 Solitary pulmonary nodule; E78.5 Hyperlipidemia, unspecified; Z13.1 Encounter for screening for diabetes mellitus